=== PATIENT | female | born 1995 | race Caucasian/White ===

== ENCOUNTER 2019-06-14 10:43 | Outpatient (CLI) | payer BC ==
[~2019-06-14] VITALS: Ht 160 cm; Wt 83.1 kg
[2019-06-14 11:27] LABS: PROTEIN/CREATININE RATIO,URINE < 53 (0-200); TOTAL PROTEIN,URINE RANDOM < 5 mg/dL (0-12)
[2019-06-14 11:31] LABS: MICROSCOPIC INDICATED
== END 2019-06-14 12:05 | disposition home or self-care (01) ==
LOC: LDOP 10:43
PROVIDERS: ATTEND Obstetrics & Gynecology
DX: O16.3 Unspecified maternal hypertension, third trimester (principal); O12.03 Gestational edema, third trimester; Z3A.40 40 weeks gestation of pregnancy
CPT/HCPCS: 59025; 81001; 82570; 84156; 87086; 99211; G0463

== ENCOUNTER 2019-06-25 16:29 | Inpatient (IN) | payer BC ==
[~2019-06-25] VITALS: Ht 160 cm; Wt 84.5 kg
[2019-06-25] MEDS: LACTATED RINGERS 1,000 ML IV SCH ×2 (16:00→20:06)
[2019-06-25] MEDS ORDERED: OXYTOCIN 30U/ 0.9% NaCL 500ML 500 ML IV PRN (17:07)
[2019-06-25] MEDS ORDERED: OXYTOCIN 30U/ 0.9% NaCL 500ML 500 ML IV ONE (17:07)
[2019-06-25] MEDS ORDERED: D5%-LACTATED RINGERS 1,000 ML IV SCH (17:07)
[2019-06-25] MEDS ORDERED: TERBUTALINE 1 MG/ML, 1ML IVPush PRN (17:30)
[2019-06-25] MEDS ORDERED: ONDANSETRON 2MG/ML, 2ML IVPush PRN ×2 (17:30→21:00)
[2019-06-25] MEDS ORDERED: FENTANYL PF 100 MCG/2ML IV PRN (17:30)
[2019-06-25] MEDS ORDERED: TERBUTALINE 1 MG/ML, 1ML SQ PRN (17:30)
[2019-06-25] MEDS ORDERED: CALCIUM CARBONATE 500 MG TAB.CHEW PO PRN (17:30)
[2019-06-25] MEDS ORDERED: FENTANYL PF 100 MCG/2ML IVPush PRN (17:30)
[2019-06-25 17:37] LABS: BASOPHILS # (AUTO) 0.02 x10^3/uL (0-0.1); BASOPHILS % (AUTO) 0 % (0-1); EOSINOPHILS # (AUTO) 0.09 x10^3/uL (0-0.4); EOSINOPHILS % (AUTO) 1 % (1-7); LYMPHOCYTES # (AUTO) 1.66 x10^3/uL (1-3.4); LYMPHOCYTES % (AUTO) 20 % (22-44); MD NO; MEAN CORPUSCULAR HEMOGLOBIN 28.1 pg (27.0-34.8); MEAN CORPUSCULAR HGB CONC 33.6 g/dL (32.4-35.8); MEAN CORPUSCULAR VOLUME 83.7 fL (80-100); MEAN PLATELET VOLUME 11.1 fL (7.4-10.4); MONOCYTES # (AUTO) 0.71 x10^3/uL (0.2-0.8); MONOCYTES % (AUTO) 8 % (2-9); NEUTROPHILS # (AUTO) 5.99 x10^3/uL (1.8-6.8); NEUTROPHILS % (AUTO) 71 % (42-75); PLATELET COUNT 192 x10^3/uL (130-400); RED BLOOD COUNT 4.34 x10^6/uL (3.82-5.3)
[2019-06-25] MEDS ORDERED: OXYTOCIN 30U/ 0.9% NaCL 500ML 500 ML ONE (17:47)
[2019-06-25] MEDS ORDERED: FENTANYL PF 500 MCG, BUPIVACAINE/PF 0.5%, 30ML 62.5 ML in SODIUM CHLORIDE 0.9% 177.5 ML EPIDCONT SCH (18:53)
[2019-06-25] MEDS ORDERED: BUPIVACAINE 0.25% ONE (20:25)
[2019-06-25] MEDS ORDERED: LACTATED RINGERS 1,000 ML IV SCH (20:48)
[2019-06-25] MEDS ORDERED: FENTANYL/BUPIV./NS/PF 250 ML EPIDCONT SCH (20:48)
[2019-06-25] MEDS ORDERED: LACTATED RINGERS 1,000 ML IVBOLUS PRN (21:00)
[2019-06-25] MEDS ORDERED: DIPHENHYDRAMINE 50 MG/ML, 1ML IVPush PRN (21:00)
[2019-06-25] MEDS ORDERED: NALOXONE 0.4 MG/ML, 1ML IVPush PRN (21:00)
[2019-06-25] MEDS ORDERED: EPHEDRINE 50 MG/ML, 1ML IVPush PRN (21:00)
[2019-06-26 00:34] LABS: BASOPHILS # (AUTO) 0.02 x10^3/uL (0-0.1); BASOPHILS % (AUTO) 0 % (0-1); EOSINOPHILS # (AUTO) 0.03 x10^3/uL (0-0.4); EOSINOPHILS % (AUTO) 0 % (1-7); LYMPHOCYTES % (AUTO) 16 % (22-44); MD NO; MEAN CORPUSCULAR HEMOGLOBIN 28.2 pg (27.0-34.8); MEAN CORPUSCULAR HGB CONC 33.7 g/dL (32.4-35.8); MEAN CORPUSCULAR VOLUME 83.8 fL (80-100); MONOCYTES # (AUTO) 0.86 x10^3/uL (0.2-0.8); MONOCYTES % (AUTO) 8 % (2-9); NEUTROPHILS % (AUTO) 75 % (42-75); PLATELET COUNT 171 x10^3/uL (130-400); RED CELL DISTRIBUTION WIDTH 13.2 % (9.6-15.2)
[2019-06-26 00:37] LABS: ALANINE AMINOTRANSFERASE 11 U/L (12-78); ALBUMIN 2.6 g/dL (3.4-5.0); ANION GAP 9 mmol/L (5-15); CALCIUM 8.7 mg/dL (8.5-10.1); CHLORIDE 113 mmol/L (98-107); CREATININE 0.66 mg/dL (0.55-1.02)
[2019-06-26 00:40] LABS: ALKALINE PHOSPHATASE 161 U/L (45-117); BILIRUBIN,TOTAL 0.2 mg/dL (0.2-1.0); TOTAL PROTEIN 6.1 g/dL (6.4-8.2)
[2019-06-26] MEDS ORDERED: LIDOCAINE 1%, 20ML ONE (04:26)
[2019-06-26] MEDS ORDERED: MISOPROSTOL 200 MCG TABLET ONE (04:26)
[2019-06-26] MEDS ORDERED: OXYTOCIN 30U/ 0.9% NaCL 500ML 500 ML ONE (05:57)
[2019-06-26] MEDS ORDERED: NEWBORN KIT ONE (06:24)
[2019-06-26] MEDS: OXYTOCIN 30U/ 0.9% NaCL 500ML 500 ML IV SCH ×2 (06:40→16:40)
[2019-06-26] MEDS ORDERED: OXYcodone IR 5MG TABLET PO PRN (07:00)
[2019-06-26] MEDS ORDERED: ACETAMINOPHEN 325 MG TABLET PO PRN (07:00)
[2019-06-26] MEDS ORDERED: MISOPROSTOL 200 MCG TABLET PR PRN (07:00)
[2019-06-26] MEDS ORDERED: SIMETHICONE 80 MG CHEW TAB PO PRN (07:00)
[2019-06-26 09:00] VITALS: BP 117/74
[2019-06-26 12:30] VITALS: BP 125/82
[2019-06-26] MEDS: PRENATAL VIT/IRON/FA 1 EACH TABLET PO SCH (12:59)
[2019-06-26] MEDS: IBUPROFEN 600 MG TABLET PO PRN ×2 (12:59→21:48)
[2019-06-26 13:56] LABS: BASOPHILS # (AUTO) 0.02 x10^3/uL (0-0.1); BASOPHILS % (AUTO) 0 % (0-1); EOSINOPHILS % (AUTO) 0 % (1-7); LYMPHOCYTES # (AUTO) 1.13 x10^3/uL (1-3.4); LYMPHOCYTES % (AUTO) 7 % (22-44); MD NO; MEAN CORPUSCULAR HEMOGLOBIN 27.9 pg (27.0-34.8); MEAN CORPUSCULAR VOLUME 84.6 fL (80-100); MEAN PLATELET VOLUME 11.2 fL (7.4-10.4); MONOCYTES % (AUTO) 6 % (2-9); NEUTROPHILS # (AUTO) 13.55 x10^3/uL (1.8-6.8); NEUTROPHILS % (AUTO) 86 % (42-75); PLATELET COUNT 174 x10^3/uL (130-400); RED BLOOD COUNT 4.13 x10^6/uL (3.82-5.3); RED CELL DISTRIBUTION WIDTH 12.8 % (9.6-15.2)
[2019-06-26 16:05] VITALS: BP 120/73
[2019-06-26 21:45] VITALS: BP 119/81
[2019-06-27 00:40] VITALS: BP 105/69
[2019-06-27] MEDS: OXYTOCIN 30U/ 0.9% NaCL 500ML 500 ML IV SCH ×2 (02:40→12:40)
[2019-06-27] MEDS: IBUPROFEN 600 MG TABLET PO PRN ×2 (06:25→13:13)
[2019-06-27 07:10] VITALS: BP 120/76
[2019-06-27] MEDS: PRENATAL VIT/IRON/FA 1 EACH TABLET PO SCH (07:48)
[2019-06-27] MEDS: DOCUSATE 100 MG CAPSULE PO PRN (07:48)
[2019-06-27] MEDS ORDERED: MEASLES,MUMPS&RUBELLA VACC/PF 0.5 ML SQ-VACC ONE ×2 (18:34→19:00)
[2019-06-27 19:25] VITALS: BP 118/79
[2019-06-28] MEDS: IBUPROFEN 600 MG TABLET PO PRN ×3 (03:18→16:46)
[2019-06-28 06:57] VITALS: BP 112/75
[2019-06-28] MEDS: PRENATAL VIT/IRON/FA 1 EACH TABLET PO SCH (09:15)
[2019-06-28] MEDS: DOCUSATE 100 MG CAPSULE PO PRN ×2 (09:15→16:46)
[2019-06-28] MEDS ORDERED: IBUP-1222 PO (11:33)
== END 2019-06-28 18:30 | disposition home or self-care (01) | DRG 807 ==
LOC: LDIP 16:42 → 2NW 06-26 08:47
PROVIDERS: ADMIT Obstetrics & Gynecology; ATTEND Obstetrics & Gynecology
PROC: 10E0XZZ Delivery of Products of Conception, External Approach (ICD-10-PCS; principal; 2019-06-26)
PROC: 0KQM0ZZ Repair Perineum Muscle, Open Approach (ICD-10-PCS; 2019-06-26)
PROC: 3E0R3BZ Introduction of Anesthetic Agent into Spinal Canal, Percutaneous Approach (ICD-10-PCS; 2019-06-26)
PROC: 00HU33Z Insertion of Infusion Device into Spinal Canal, Percutaneous Approach (ICD-10-PCS; 2019-06-26)
DX: O24.424 Gestational diabetes mellitus in childbirth, insulin controlled (principal); Z37.0 Single live birth; O36.63X0 Maternal care for excessive fetal growth, third trimester, not applicable or unspecified; O40.3XX0 Polyhydramnios, third trimester, not applicable or unspecified; O66.0 Obstructed labor due to shoulder dystocia; O70.1 Second degree perineal laceration during delivery; Z3A.38 38 weeks gestation of pregnancy; Z83.3 Family history of diabetes mellitus
CPT/HCPCS: 36415; S0020; 80053; 82803; 82962; 83036; 85025; 86592; 86850; 86900; G0378; J3010; J3490; J2590; J7050; J7120